=== PATIENT | male | born 1950 | race Asian ===

== ENCOUNTER 2017-03-20 21:35 | Emergency (ER) | payer OTHER, BC ==
--- NOTE | 2017-03-24 07:54 | ED ORDER SUMMARY ---
..... Patient: ROXANNE STRICKLAND OrderSheet Located Within [facility] VisitID: [id number] [address] [place] [address] 66y, M Registration Date/Time: 03/20/2017 ORDER SHEET Weight: 68.0 kg (stated) Allergies: Amiodarone GENERAL ORDERS: - (orthostatic BP /P) (23:55 03/20/2017 Ken GONZALEZ) (0:02 TBowen R.N.) MEDICATION ORDERS: Oxycodone-APAP PO 10/650 mg (NOW) (23:52 03/20/2017 Ken GONZALEZ) (23:57 TBowen R.N.) - (Colchicine 1.2 mg po) (23:53 03/20/2017 Ken GONZALEZ) (0:22 CBradburn R.N.) IV FLUIDS: ORDER SHEET NOTES: [Electronically signed by Katie Oseguera R.N. (00:24 03/21/2017)] [Electronically signed by Blake Cheung MD (07:54 03/24/2017)] [Electronically locked/signed by Katie Oseguera R.N. (00:24 03/21/2017)]
--- NOTE | 2017-03-24 07:54 | ED CLINICAL REPORT ---
Clinical Report - Physicians/Mid Levels [facility] [address] [place] [address] 03/20/2017 21:40 Patient: ROXANNE STRICKLAND Time Seen: 23:54 Mar 20 2017. Arrived- By private vehicle. Historian- patient. HISTORY OF PRESENT ILLNESS Chief Complaint: LOWER EXTREMITY PAIN and SWELLING. This started 3 days ago and is still present (worse today; Feels like gout. Ate a large protein meal on Mothers Day . the next day he started to have gout symptoms in the right ankle. Pt seen today at walk-in clinic and had a uric acid level of 7.7 (high) and a ankle x-ray that was negative. Pt sent to ER because he had a slight dizzy spell that lasted a few seconds and went away when he lay down. He has not had any dizziness since. He went home and called his project safety manager at the as the patient is a heart transplant patient. T he project safety manager was not concerned about the dizzy spell and sent the patient to the ER to get medication for the ankle.). Severity is described as being moderate. It has become recently worse. The quality is noted to be aching, "pain" and similar to prior episodes. Symptoms located in the area of the right ankle. The patient has had redness and swelling. He has had difficulty walking. Patient denies an injury. Similar symptoms previously: As bad. Diagnosis: gout. Recent medical care: Not recently seen/assessed. REVIEW OF SYSTEMS No cough, chest pain, difficulty breathing or fever. No skin rash, lesions or rash, enlarged lymph nodes or neck pain. No back pain, sore throat or throat, abdominal pain or vomiting. No diarrhea, black stools, difficulty with urination, weakness or diabetic symptoms. No easy bruising. The patient has had difficulty walking. All systems otherwise negative, except as recorded above. PAST HISTORY Hypertension. ( Gout. Pneumonia. Heart Disease. ADDITIONAL SURGERIES: Heart Transplant.). Hyperlipidemia. Medications: Pravastatin Sodium Oral (Tablet 20 mg) 1 tablet, daily. AmLODIPine Besylate Oral (Tablet 5 mg) 1 tablet, daily. Losartan Potassium Oral 37.5mg, daily. Magnesium Oxide Oral (Tablet 400 mg) 1 tablet. Aspirin Oral (Tablet Chewable 81 mg) 1 tablet. Mycophenolate Mofetil Oral (Tablet 500 mg) 1 tablet, 2xdaily. Tacrolimus Oral 2.5 mg , 2xday. Allergies: Amiodarone. SOCIAL HISTORY Never smoker. No alcohol use or drug use. ADDITIONAL NOTES The nursing notes have been reviewed. PHYSICAL EXAM Vital Signs: 03/20/2017 21:59 BP: 134/93. HR: 102. RR: 18. O2 saturation: 99%. Temp: 98.4 F. Pain level now: 06/12. Appearance: Alert. Eyes: Eyes normal inspection. Neck: Normal inspection. CVS: Normal heart rate and rhythm. Heart sounds normal. Respiratory: No respiratory distress. Breath sounds normal. Back: Normal inspection. No tenderness. Skin: Skin warm. Normal skin color. Extremities: Right ankle: moderate erythema, tenderness and swelling localized to the lateral ligaments. Limited ROM secondary to pain. Small joint effusion present. Neurovascular intact distally. No ligamentous laxity present. No abrasion or foreign body. No deformity consistent with a fracture or dislocation. Neuro: Oriented X 3. No motor deficit. No sensory deficit. PROGRESS AND PROCEDURES Course of Care: Colchicine 1.2 mg by mouth . Percocet 2 by mouth. Patient is stable. Symptoms better. Patient/family counseled. Disposition: Discharged. Condition: stable. CLINICAL IMPRESSION Acute idiopathic gout with monarthritis involving the right ankle. No tophus. INSTRUCTIONS Elevate affected areas above chest level for two days until better. Warnings: Further evaluation is necessary. GENERAL WARNINGS: Return or contact your physician immediately if your condition worsens or changes unexpectedly, if not improving as expected, or if other problems arise. Your Current Medications: CONTINUE TAKING THE FOLLOWING MEDICATIONS: AmLODIPine Besylate Oral : Tablet 5 mg, 1 tablet daily. Aspirin Oral : Tablet Chewable 81 mg, 1 tablet. Losartan Potassium Oral : 37.5mg daily. Magnesium Oxide Oral : Tablet 400 mg, 1 tablet. Mycophenolate Mofetil Oral : Tablet 500 mg, 1 tablet 2xdaily. Pravastatin Sodium Oral : Tablet 20 mg, 1 tablet daily. Tacrolimus Oral : 2.5 mg 2xday. Prescription Medications: Oxycodone/APAP 5 mg/325 mg: take 1-2 tablets orally every 4 hours as needed for pain. Dispense twenty (20). No refill. Colchicine 0.6 mg tablets: take 1 tablet orally every 1-2 hours as needed. Do not take more than 4mg in one day. Dispense twenty (20). No refills. Follow-up: Follow up with your doctor in five days if not better. Understanding of the discharge instructions verbalized by patient and family. (Electronically signed by Blake Cheung MD 03/24/2017 7:54)
--- NOTE | 2017-03-24 07:54 | ED CLINICAL REPORT ---
Clinical Report - Physicians/Mid Levels [facility] [address] [place] [address] 03/20/2017 21:40 Patient: ROXANNE STRICKLAND Time Seen: 23:54 Mar 20 2017. Arrived- By private vehicle. Historian- patient. HISTORY OF PRESENT ILLNESS Chief Complaint: LOWER EXTREMITY PAIN and SWELLING. This started 3 days ago and is still present (worse today; Feels like gout. Ate a large protein meal on Mothers Day . the next day he started to have gout symptoms in the right ankle. Pt seen today at walk-in clinic and had a uric acid level of 7.7 (high) and a ankle x-ray that was negative. Pt sent to ER because he had a slight dizzy spell that lasted a few seconds and went away when he lay down. He has not had any dizziness since. He went home and called his automatic fabric cutter at the as the patient is a heart transplant patient. T he automatic fabric cutter was not concerned about the dizzy spell and sent the patient to the ER to get medication for the ankle.). Severity is described as being moderate. It has become recently worse. The quality is noted to be aching, "pain" and similar to prior episodes. Symptoms located in the area of the right ankle. The patient has had redness and swelling. He has had difficulty walking. Patient denies an injury. Similar symptoms previously: As bad. Diagnosis: gout. Recent medical care: Not recently seen/assessed. REVIEW OF SYSTEMS No cough, chest pain, difficulty breathing or fever. No skin rash, lesions or rash, enlarged lymph nodes or neck pain. No back pain, sore throat or throat, abdominal pain or vomiting. No diarrhea, black stools, difficulty with urination, weakness or diabetic symptoms. No easy bruising. The patient has had difficulty walking. All systems otherwise negative, except as recorded above. PAST HISTORY Hypertension. ( Gout. Pneumonia. Heart Disease. ADDITIONAL SURGERIES: Heart Transplant.). Hyperlipidemia. Medications: Pravastatin Sodium Oral (Tablet 20 mg) 1 tablet, daily. AmLODIPine Besylate Oral (Tablet 5 mg) 1 tablet, daily. Losartan Potassium Oral 37.5mg, daily. Magnesium Oxide Oral (Tablet 400 mg) 1 tablet. Aspirin Oral (Tablet Chewable 81 mg) 1 tablet. Mycophenolate Mofetil Oral (Tablet 500 mg) 1 tablet, 2xdaily. Tacrolimus Oral 2.5 mg , 2xday. Allergies: Amiodarone. SOCIAL HISTORY Never smoker. No alcohol use or drug use. ADDITIONAL NOTES The nursing notes have been reviewed. PHYSICAL EXAM Vital Signs: 03/20/2017 21:59 BP: 134/93. HR: 102. RR: 18. O2 saturation: 99%. Temp: 98.4 F. Pain level now: 06/12. Appearance: Alert. Eyes: Eyes normal inspection. Neck: Normal inspection. CVS: Normal heart rate and rhythm. Heart sounds normal. Respiratory: No respiratory distress. Breath sounds normal. Back: Normal inspection. No tenderness. Skin: Skin warm. Normal skin color. Extremities: Right ankle: moderate erythema, tenderness and swelling localized to the lateral ligaments. Limited ROM secondary to pain. Small joint effusion present. Neurovascular intact distally. No ligamentous laxity present. No abrasion or foreign body. No deformity consistent with a fracture or dislocation. Neuro: Oriented X 3. No motor deficit. No sensory deficit. PROGRESS AND PROCEDURES Course of Care: Colchicine 1.2 mg by mouth . Percocet 2 by mouth. Patient is stable. Symptoms better. Patient/family counseled. Disposition: Discharged. Condition: stable. CLINICAL IMPRESSION Acute idiopathic gout with monarthritis involving the right ankle. No tophus. INSTRUCTIONS Elevate affected areas above chest level for two days until better. Warnings: Further evaluation is necessary. GENERAL WARNINGS: Return or contact your physician immediately if your condition worsens or changes unexpectedly, if not improving as expected, or if other problems arise. Your Current Medications: CONTINUE TAKING THE FOLLOWING MEDICATIONS: AmLODIPine Besylate Oral : Tablet 5 mg, 1 tablet daily. Aspirin Oral : Tablet Chewable 81 mg, 1 tablet. Losartan Potassium Oral : 37.5mg daily. Magnesium Oxide Oral : Tablet 400 mg, 1 tablet. Mycophenolate Mofetil Oral : Tablet 500 mg, 1 tablet 2xdaily. Pravastatin Sodium Oral : Tablet 20 mg, 1 tablet daily. Tacrolimus Oral : 2.5 mg 2xday. Prescription Medications: Oxycodone/APAP 5 mg/325 mg: take 1-2 tablets orally every 4 hours as needed for pain. Dispense twenty (20). No refill. Colchicine 0.6 mg tablets: take 1 tablet orally every 1-2 hours as needed. Do not take more than 4mg in one day. Dispense twenty (20). No refills. Follow-up: Follow up with your doctor in five days if not better. Understanding of the discharge instructions verbalized by patient and family. (Electronically signed by Blake Cheung MD 03/24/2017 7:54)
--- NOTE | 2017-03-24 07:54 | ED MED RECONCILIATION SUMMARY ---
Patient: ROXANNE STRICKLAND Medication Reconciliation Report [facility] VisitID: [id number] [address] [place] [address] 66y, M Registration Date/Time: 03/20/2017 Weight: 68.0 kg Height/Length: 62 in. BMI: 27.4 ALLERGIES: Amiodarone The patient's Home Medications are listed below: CONTINUE TAKING THE FOLLOWING MEDICATIONS: AmLODIPine Besylate Oral (5 mg) 1 tablet, daily Aspirin Oral (81 mg) 1 tablet Losartan Potassium Oral 37.5mg, daily Magnesium Oxide Oral (400 mg) 1 tablet Mycophenolate Mofetil Oral (500 mg) 1 tablet, 2xdaily Pravastatin Sodium Oral (20 mg) 1 tablet, daily Tacrolimus Oral 2.5 mg , 2xday The source(s) of the original Home Medication information: Not obtained. The following Medications were given to the patient in the Emergency Department: Oxycodone-APAP [PO] PO 2 tab, administered: 03/20/2017 11:57:00 PM Colchicine [PO] PO 0.6 mg, administered: 03/21/2017 12:15:00 AM The following Medications were prescribed to the patient: Oxycodone/APAP 5 mg/325 mg: take 1-2 tablets orally every 4 hours as needed for pain. Dispense twenty (20). No refill. -- Blake Cheung MD Colchicine 0.6 mg tablets: take 1 tablet orally every 1-2 hours as needed. Do not take more than 4mg in one day. Dispense twenty (20). No refills. -- Blake Cheung MD
--- NOTE | 2017-03-24 07:54 | ED MED RECONCILIATION SUMMARY ---
Patient: ROXANNE STRICKLAND Medication Reconciliation Report [facility] VisitID: [id number] [address] [place] [address] 66y, M Registration Date/Time: 03/20/2017 Weight: 68.0 kg Height/Length: 62 in. BMI: 27.4 ALLERGIES: Amiodarone The patient's Home Medications are listed below: CONTINUE TAKING THE FOLLOWING MEDICATIONS: AmLODIPine Besylate Oral (5 mg) 1 tablet, daily Aspirin Oral (81 mg) 1 tablet Losartan Potassium Oral 37.5mg, daily Magnesium Oxide Oral (400 mg) 1 tablet Mycophenolate Mofetil Oral (500 mg) 1 tablet, 2xdaily Pravastatin Sodium Oral (20 mg) 1 tablet, daily Tacrolimus Oral 2.5 mg , 2xday The source(s) of the original Home Medication information: Not obtained. The following Medications were given to the patient in the Emergency Department: Oxycodone-APAP [PO] PO 2 tab, administered: 03/20/2017 11:57:00 PM Colchicine [PO] PO 0.6 mg, administered: 03/21/2017 12:15:00 AM The following Medications were prescribed to the patient: Oxycodone/APAP 5 mg/325 mg: take 1-2 tablets orally every 4 hours as needed for pain. Dispense twenty (20). No refill. -- Blake Cheung MD Colchicine 0.6 mg tablets: take 1 tablet orally every 1-2 hours as needed. Do not take more than 4mg in one day. Dispense twenty (20). No refills. -- Blake Cheung MD
--- NOTE | 2017-03-24 07:54 | ED MAR SUMMARY ---
..... Medication Administration Record [facility] [address] [place] [address] Patient: ROXANNE STRICKLAND Visit ID: [id number] 66y, M Weight: 68.0 kg Height/Length: 62 in BMI: 27.4 ALLERGIES: Amiodarone Given 23:57 03/20/2017 Marshal Aguilar Medication Administered: OXYCODONE-APAP [PO] (OXYCODONE-ACETAMINOPHEN), Dose: 2 tab 10/650 mg Tablets PO. Medication Ordered: Oxycodone-APAP PO 10/650 mg (NOW). Given 00:15 03/21/2017 Katie Oseguera RSarahNSarah Medication Administered: COLCHICINE [PO], Dose: 0.6 mg Tablets PO. Medication Ordered: - (Colchicine 1.2 mg po).
--- NOTE | 2017-03-24 07:54 | ED ORDER SUMMARY ---
..... Patient: ROXANNE STRICKLAND OrderSheet [facility] VisitID: [id number] [address] [place] [address] 66y, M Registration Date/Time: 03/20/2017 ORDER SHEET Weight: 68.0 kg (stated) Allergies: Amiodarone GENERAL ORDERS: - (orthostatic BP /P) (23:55 03/20/2017 Ken GONZALEZ) (0:02 TBowen R.N.) MEDICATION ORDERS: Oxycodone-APAP PO 10/650 mg (NOW) (23:52 03/20/2017 Ken GONZALEZ) (23:57 TBowen R.N.) - (Colchicine 1.2 mg po) (23:53 03/20/2017 Ken GONZALEZ) (0:22 CBradburn R.N.) IV FLUIDS: ORDER SHEET NOTES: [Electronically signed by Katie Oseguera R.N. (00:24 03/21/2017)] [Electronically signed by Blake Cheung MD (07:54 03/24/2017)] [Electronically locked/signed by Katie Oseguera R.N. (00:24 03/21/2017)]
--- NOTE | 2017-03-24 07:54 | ED DISCHARGE INSTRUCTIONS ---
Patient: ROXANNE STRICKLAND General [facility] VisitID: [id number] [place] [address] 66y, M Registration Date/Time: 03/20/2017 Acute idiopathic gout with monarthritis involving the right ankle. No tophus. INSTRUCTIONS Elevate affected areas above chest level for two days until better. Warnings: Further evaluation is necessary. GENERAL WARNINGS: Return or contact your physician immediately if your condition worsens or changes unexpectedly, if not improving as expected, or if other problems arise. Your Current Medications: CONTINUE TAKING THE FOLLOWING MEDICATIONS: AmLODIPine Besylate Oral : Tablet 5 mg, 1 tablet daily. Aspirin Oral : Tablet Chewable 81 mg, 1 tablet. Losartan Potassium Oral : 37.5mg daily. Magnesium Oxide Oral : Tablet 400 mg, 1 tablet. Mycophenolate Mofetil Oral : Tablet 500 mg, 1 tablet 2xdaily. Pravastatin Sodium Oral : Tablet 20 mg, 1 tablet daily. Tacrolimus Oral : 2.5 mg 2xday. Prescription Medications: Oxycodone/APAP 5 mg/325 mg: take 1-2 tablets orally every 4 hours as needed for pain. Dispense twenty (20). No refill. Colchicine 0.6 mg tablets: take 1 tablet orally every 1-2 hours as needed. Do not take more than 4mg in one day. Dispense twenty (20). No refills. Follow-up: Follow up with your doctor in five days if not better. Understanding of the discharge instructions verbalized by patient and family. ADDITIONAL INFORMATION Gout Gout or "gouty arthritis" is an inflammation of a joint due to a build-up of gout crystals in the joint fluid. This occurs when there is an excess uric acid (a normal waste product) in the body. Uric acid builds up in the body when the kidneys are unable to filter enough of it from the blood. This may occur with aging or kidney disease. Gout occurs more often in persons with obesity, diabetes, hypertension, high fats in the blood. It may be present in other family members. Alcohol and certain foods (such as shellfish and alcohol) may increase uric acid levels in the blood and cause a gout attack. Gout causes a hot, red, swollen and painful joint. If you have had one episode of gout, you are likely to have another. An acute attack of gout can be treated with anti-inflammatory and other medicine. If these attacks become frequent it may be necessary to take a daily medicine to help the kidney remove uric acid from the body. Home Care: Apply an ice pack (ice cubes in a plastic bag, wrapped in a towel) over the injured area for 20 minutes every 1-2 hours the first day for pain relief. Continue this 3-4 times a day until the pain and swelling goes away. Avoid alcohol and foods listed below (see Prevention) during a gout attack. Drink extra fluid to help flush the uric acid through your kidneys. Rest painful joints. If gout affects the joints of your foot or leg, you may want to use crutches for the first few days to keep from bearing weight on the foot or leg. Take anti-inflammatory medicine as directed. You may be prescribed Indocin (indomethacin), or ofdt-[id number]-[id number] drugs such as ibuprofen (Motrin, Advil) or naproxen (Naprosyn or Aleve). Tylenol will not be as effective since it is not an anti-inflammatory drug. If narcotic pain medicines have been prescribed, they should be used in addition to the anti-inflammatory drugs and only for severe pain. Avoid aspirin since this may slow down the flushing of the uric acid through your kidneys. Preventing Future Attacks: Minimize or avoid alcohol use. Excess alcohol intake can cause a gout attack. Foods high in purine form uric acid in the body and increase your risk for a gout attack. Therefore, avoid the following foods: certain seafoods (anchovies, sardines, shrimp, scallops, trinh, mackerel); wild game, meat extracts and meat gravies; organ foods (kidney, liver, calf brain, sweetbreads). Avoid drinks with fructose (a type of sugar). Limit the following foods to one serving a day: red meat and pork, fish, poultry, dried beans and peas, asparagus, mushrooms, cauliflower and spinach. If you are overweight, this is a risk factor and you should talk to your doctor about a weight reduction plan. However, avoid fasting or extreme low calorie diets (less than 900 abisai/day) which will increase uric acid levels in the body. If you are diabetic or have high blood pressure, work with your doctor to achieve control of these conditions. Avoid injury to the involved joint since this can lead to a gout attack. Colchicine can be effective in stopping a gout attack. If you were given a prescription of this medicine for future use, begin it at the first sign of an attack. Colchicine may cause nausea, vomiting, diarrhea and other side effects. Follow Up with your doctor as advised or if you are not improving after three days of treatment. Get Prompt Medical Attention if any of the following occur: Fever over 100.4F (38.0C) with worsening joint pain Increasing redness around the joint Pain developing in another joint Repeated vomiting, abdominal pain, or blood in the vomit or stool (black or red color) Oxycodone Hydrochloride, Acetaminophen Oral tablet What is this medicine? ACETAMINOPHEN; OXYCODONE (a set a HAVEN usama fen; ox i KOE done) is a pain reliever. It is used to treat mild to moderate pain. How should I use this medicine? Take this medicine by mouth with a full glass of water. Follow the directions on the prescription label. Take your medicine at regular intervals. Do not take your medicine more often than directed. Talk to your software development project manager regarding the use of this medicine in children. Special care may be needed. Patients over 65 years old may have a stronger reaction and need a smaller dose. What side effects may I notice from receiving this medicine? Side effects that you should report to your doctor or health ocular care technologist as soon as possible: allergic reactions like skin rash, itching or hives, swelling of the face, lips, or tongue breathing difficulties, wheezing confusion light headedness or fainting spells severe stomach pain yellowing of the skin or the whites of the eyes Side effects that usually do not require medical attention (report to your doctor or health ocular care technologist if they continue or are bothersome): dizziness drowsiness nausea vomiting What may interact with this medicine? alcohol antihistamines barbiturates like amobarbital, butalbital, butabarbital, methohexital, pentobarbital, phenobarbital, thiopental, and secobarbital benztropine drugs for bladder problems like solifenacin, trospium, oxybutynin, tolterodine, hyoscyamine, and methscopolamine drugs for breathing problems like ipratropium and tiotropium drugs for certain stomach or intestine problems like propantheline, homatropine methylbromide, glycopyrrolate, atropine, belladonna, and dicyclomine general anesthetics like etomidate, ketamine, nitrous oxide, propofol, desflurane, enflurane, halothane, isoflurane, and sevoflurane medicines for depression, anxiety, or psychotic disturbances medicines for sleep muscle relaxants naltrexone narcotic medicines (opiates) for pain phenothiazines like perphenazine, thioridazine, chlorpromazine, mesoridazine, fluphenazine, prochlorperazine, promazine, and trifluoperazine scopolamine tramadol trihexyphenidyl What if I miss a dose? If you miss a dose, take it as soon as you can. If it is almost time for your next dose, take only that dose. Do not take double or extra doses. Where should I keep my medicine? Keep out of the reach of children. This medicine can be abused. Keep your medicine in a safe place to protect it from theft. Do not share this medicine with anyone. Selling or giving away this medicine is dangerous and against the law. Store at room temperature between 20 and 25 degrees C (68 and 77 degrees F). Keep container tightly closed. Protect from light. This medicine may cause accidental overdose and if it is taken by other adults, children, or pets. Flush any unused medicine down the toilet to reduce the chance of harm. Do not use the medicine after the expiration date. What should I tell my health care provider before I take this medicine? They need to know if you have any of these conditions: brain tumor Crohn's disease, inflammatory bowel disease, or ulcerative colitis drink more than 3 alcohol containing drinks per day drug abuse or addiction head injury heart or circulation problems kidney disease or problems going to the bathroom liver disease lung disease, asthma, or breathing problems an unusual or allergic reaction to acetaminophen, oxycodone, other opioid analgesics, other medicines, foods, dyes, or preservatives or trying to get breast-feeding What should I watch for while using this medicine? Tell your doctor or health ocular care technologist if your pain does not go away, if it gets worse, or if you have new or a different type of pain. You may develop tolerance to the medicine. Tolerance means that you will need a higher dose of the medication for pain relief. Tolerance is normal and is expected if you take this medicine for a long time. Do not suddenly stop taking your medicine because you may develop a severe reaction. Your body becomes used to the medicine. This does NOT mean you are addicted. Addiction is a behavior related to getting and using a drug for a non-medical reason. If you have pain, you have a medical reason to take pain medicine. Your doctor will tell you how much medicine to take. If your doctor wants you to stop the medicine, the dose will be slowly lowered over time to avoid any side effects. You may get drowsy or dizzy. Do not drive, use machinery, or do anything that needs mental alertness until you know how this medicine affects you. Do not stand or sit up quickly, especially if you are an older patient. This reduces the risk of dizzy or fainting spells. Alcohol may interfere with the effect of this medicine. Avoid alcoholic drinks. There are different types of narcotic medicines (opiates) for pain. If you take more than one type at the same time, you may have more side effects. Give your health care provider a list of all medicines you use. Your doctor will tell you how much medicine to take. Do not take more medicine than directed. Call emergency for help if you have problems breathing. The medicine will cause constipation. Try to have a bowel movement at least every 2 to 3 days. If you do not have a bowel movement for 3 days, call your doctor or health ocular care technologist. Do not take Tylenol (acetaminophen) or medicines that have acetaminophen with this medicine. Too much acetaminophen can be very dangerous. Many nonprescription medicines contain acetaminophen. Always read the labels carefully to avoid taking more acetaminophen. You have been given the following additional information: Gouty Arthritis Oxycodone Hydrochloride, Acetaminophen Oral tablet (Electronically signed by Blake Cheung MD 03/24/2017 7:54)
--- NOTE | 2017-03-24 07:54 | ED MAR SUMMARY ---
..... Medication Administration Record [facility] [address] [place] [address] Patient: ROXANNE STRICKLAND Visit ID: [id number] 66y, M Weight: 68.0 kg Height/Length: 62 in BMI: 27.4 ALLERGIES: Amiodarone Given 23:57 03/20/2017 Marshal Aguilar Medication Administered: OXYCODONE-APAP [PO] (OXYCODONE-ACETAMINOPHEN), Dose: 2 tab 10/650 mg Tablets PO. Medication Ordered: Oxycodone-APAP PO 10/650 mg (NOW). Given 00:15 03/21/2017 Katie Oseguera RSarahNSarah Medication Administered: COLCHICINE [PO], Dose: 0.6 mg Tablets PO. Medication Ordered: - (Colchicine 1.2 mg po).
--- NOTE | 2017-03-24 07:54 | ED NURSING NOTES ---
Clinical Report - Nurses [facility] [address] [place] [address] 03/20/2017 21:40 Patient: ROXANNE STRICKLAND TRIAGE Triage time 21:59. Acuity: LEVEL 4. Chief Complaint: RIGHT LOWER EXTREMITY PAIN, SWELLING and REDNESS. Location of symptoms- (hx of gout pt uric acid 7.7 today). --22:08 Katie Oseguera R.N. 21:59 03/20/17. BP: 134/93 taken on the left arm, while lying. HR: 102 (regular and tachycardic). RR: 18 (regular). O2 saturation: 99% on room air. Temp: 98.4 F (oral). Pain level now: 06/12. --22:08 Katie Oseguera R.N. Weight: 68 kg stated. Height/Length: 62 inches Per Patient. BMI: 27.4. --22:03 Katie Oseguera R.N. Medications Mycophenolate Mofetil Oral (Tablet 500 mg) 1 tablet, 2xdaily. Tacrolimus Oral 2.5 mg , 2xday. --22:05 Katie Oseguera R.N. Aspirin Oral (Tablet Chewable 81 mg) 1 tablet. --22:05 Katie Oseguera R.N. Magnesium Oxide Oral (Tablet 400 mg) 1 tablet. --22:05 Katie Oseguera R.N. Losartan Potassium Oral 37.5mg, daily. --22:06 Katie Oseguera R.N. AmLODIPine Besylate Oral (Tablet 5 mg) 1 tablet, daily. --22:06 Katie Oseguera R.N. Pravastatin Sodium Oral (Tablet 20 mg) 1 tablet, daily. --22:06 Katie Oseguera R.N. Allergies Amiodarone. --22:05 Katie Oseguera R.N. History Arrived by private vehicle. Historian: patient. Accompanied by family. Primary physician (Trav). No injury occurred. This occurred (started friday). ( seen at urgent care today, had labs and then left). He has had swelling and redness. PAST MEDICAL HX: Tetanus status: up-to-date. Immunizations: up-to-date. SOCIAL HX: Never smoker. No alcohol use or drug use. No infectious disease exposure. ABUSE ASSESSMENT: No report of abuse. SELF HARM ASSESSMENT: A self harm assessment was performed. The patient answered "no" to the question "Have you recently felt down, depressed, or hopeless?", "Have you noticed less interest or pleasure in doing things?", "Do you have thoughts of harming or killing yourself?", "Are you here because you tried to hurt yourself?", "Have you ever tried to hurt yourself before today?", "Have you recently had thoughts about harming or killing others?" and "Do you have any dangerous items in your possession?". --22:08 Katie Oseguera R.N. PROBLEMS: Gout. Pneumonia. Heart Disease. --22:07 Katie Oseguera R.N. ADDITIONAL SURGERIES: Heart Transplant. --22:07 Katie Oseguera R.N. PHYSICAL ASSESSMENT To room via wheelchair. GENERAL / NEURO / PSYCH: Oriented X 4. Alert. Appears in no acute distress. Appears in pain. EXTREMITIES: Limited ROM present. Lower extremity edema. Extremity pulses are within normal limits. Neuro-vascular status intact to the extremity. Right foot: tenderness, swelling and erythema. SKIN: Skin is warm and dry. Skin not intact. --22:40 Marshal Aguilar NURSING PROGRESS NOTES Two patient identifiers checked. Call light placed in reach. Side rails up x 2. Bed placed in lowest position. Brakes of bed on. --22:40 Marshal Aguilar 23:57 03/20/2017 Oxycodone-APAP (Oxycodone-Acetaminophen) PO 10/650 mg Tablets 2 tab given. Allergies verified, confirmed 5 rights and sedative warning given to the patient. --23:57 Marshal Aguilar 23:58 03/20/17. BP: 130/82 taken while lying. HR: 89. RR: 18. O2 saturation: 99%. Temp: deferred. Pain level now: 05/12. --23:59 Marshal Aguilar 23:59 03/20/17. BP: 135/87 taken while sitting. HR: 94. RR: 18. O2 saturation: 100%. Temp: deferred. Pain level now deferred. --00:00 Marshal Aguilar 00:00 03/21/17. BP: 134/91 taken while standing. HR: 97. RR: 18. O2 saturation: 98%. Temp: deferred. Pain level now deferred. --00:02 Marshal Aguilar 00:15 03/21/2017 Colchicine PO Tablets 0.6 mg given. Allergies verified and confirmed 5 rights. --00:22 Katie Oseguera R.N. DISPOSITION / DISCHARGE Departure time: 0018. Condition at departure: improved and stable. No learning barriers present. Discharge instructions provided and reviewed with the patient. Reviewed medication(s) side effects, precautions, dosing and course information. Prescription(s) given to the patient. Patient verbalized understanding. Written instructions provided in Kyrgyz. The patient was discharged home and accompanied by family. He left the Emergency Department ambulatory and via private vehicle. Family member driving. --00:24 Katie Oseguera R.N. 00:22 03/21/17. BP: deferred. HR: deferred. RR: deferred. O2 saturation: deferred. Temp: deferred. Pain level now deferred. --00:24 Katie Oseguera R.N. Locked/Released at 03/21/2017 0:24 by Katie Oseguera R.N.
== END 2017-03-21 00:18 | disposition home or self-care (01) ==
LOC: ED SRH 21:35
DX: M10.071 Idiopathic gout, right ankle and foot (principal); M13.171 Monoarthritis, not elsewhere classified, right ankle and foot; R42 Dizziness and giddiness; Z94.1 Heart transplant status; I10 Essential (primary) hypertension; Z79.899 Other long term (current) drug therapy; Z79.82 Long term (current) use of aspirin; Z88.8 Allergy status to other drugs, medicaments and biological substances